=== PATIENT | female | born 1960 | race African-American/Black ===

== ENCOUNTER 2018-02-16 10:43 | Emergency (ER) | payer SELFPAY ==
[~2018-02-16] VITALS: Ht 182.9 cm; Wt 92.0 kg
[2018-02-16 10:51] VITALS: BP 146/80; PULSE 95; TEMP 98.8
== END 2018-02-16 11:19 | disposition left against medical advice (07) ==
LOC: COL.ER 10:43
DX: R69 Illness, unspecified (principal)

== ENCOUNTER → 2018-03-17 | Outpatient (CLI) | payer SELFPAY | LOC: MC.RAD 08:12 | DX: Z85.3 Personal history of malignant neoplasm of breast (principal); Z90.11 Acquired absence of right breast and nipple ==